=== PATIENT | male | born 1955 | race Caucasian/White ===

== ENCOUNTER 2024-12-08 21:46 | Emergency (ER) | payer MEDICARE, SELFPAY ==
[2024-12-08 22:07] VITALS: TEMP 97.2
--- NOTE | 2024-12-08 22:53 | ERPHSYRPT ---
- History of Present Illness Time Seen by Provider: 12/08/24 22:48 Source: patient Exam Limitations: no limitations Patient Subjective Stated Complaint: pt reports right foot pain beginning yesterday. pt denies injury or accident. pt reports history of DVT to the lower extermities. Triage Nursing Assessment: pt is aox3, pupils perrl, afebrile, resps easy and non labored, cap refill < 3 seconds, radial pulses strong and equal, pt skin pink warm dry. 3+ pitting edema noted to BLE, skin is intact, skin to BLE is discolored, fluid appears to be collecting under the skin of BLE as well. Physician History: Patient is a 69-year-old male history of diabetes hypertension CT stroke DVT and asthma, multiple back surgeries presents to our ED for evaluation of progressive bilateral lower extremity swelling. Symptoms have been progressive over the past day. Symptoms started after his Lasix was cut from 40 mg twice a day to 20 mg twice a day. He also cut his supplemental potassium as an adjustment for his decreased torsemide dose. No trauma no fever. No nausea vomiting or diaphoresis. Symptoms are progressive. Symptoms are moderate in intensity. No specific worsening or improving factors. No PND. at bedside. They voiced no other complaints or concerns at this time. Portions of this note were created with voice recognition technology. There may be grammatical, spelling, punctuation or sound alike errors Timing/Duration: today Severity: moderate Modifying Factors: Improves With: nothing Associated Symptoms: denies symptoms Allergies/Adverse Reactions: empagliflozin [From Jardiance] Adverse Reaction (Verified 12/08/24 22:07) Rash semaglutide [From Ozempic] Adverse Reaction (Verified 12/08/24 22:07) Home Medications: Acetaminophen [8Hr Arthritis Pain Relief] 650 mg PO DAILY PRN PRN 12/08/24 [History] Baclofen 10 mg [Lioresal 10 mg] 20 mg PO HS 12/08/24 [History] Gabapentin [Neurontin ] 600 mg PO HS 12/08/24 [History] Magnesium 400 mg PO TID 12/08/24 [History] Meclizine HCl 25 mg [Antivert 25 mg] 12.5 mg PO DAILY PRN PRN 12/08/24 [History] Melatonin 10 mg PO HS 12/08/24 [History] Metoprolol Tartrate 25 mg [Lopressor 25MG Tab] 25 mg PO BREAKFAST 12/08/24 [History] Morphine Sulfate Ir 15 mg [Msir 15 mg] 15 mg PO DAILY PRN PRN 12/08/24 [History] Nitroglycerin 0.4 mg Tablet [Nitrostat 0.4 MG Tablet] 0.4 mg PO UD 12/08/24 [History] [place]-3/Dha/Epa/Fish Oil [Fish Oil 1,000 mg Softgel] 1 each PO LUNCH 12/08/24 [History] Potassium Chloride Tab* [Klor Con] 20 meq PO HS 12/08/24 [History] Potassium Chloride Tab* [Klor Con] 20 meq PO LUNCH 12/08/24 [History] Potassium Chloride Tab* [Klor Con] 20 meq PO QAM 12/08/24 [History] Promethazine HCl 25 mg [Phenergan 25 mg] 12.5 mg PO DAILY PRN PRN 12/08/24 [History] Spironolactone 25 mg [Aldactone 25 MG] 25 mg PO BREAKFAST 12/08/24 [History] Tamsulosin HCl [Flomax] 0.4 mg PO BREAKFAST 12/08/24 [History] Tizanidine HCl 4 mg [Zanaflex 4 MG] 4 mg PO TIDPRN PRN 12/08/24 [History] Tolterodine Tartrate [Tolterodine Tartrate ER] 4 mg PO BREAKFAST 12/08/24 [History] Torsemide 20 mg [Demadex 20 mg] 20 mg PO BID 12/08/24 [History] Turmeric Root Extract [Turmeric Curcumin] 500 mg PO LUNCH 12/08/24 [History] Ubidecarenone [Co Q-10] 100 mg PO BREAKFAST 12/08/24 [History] diphenhydrAMINE HCL [Benadryl] 25 mg PO HS 12/08/24 [History] Hx Tetanus, Diphtheria Vaccination/Date Given: Yes (2024) Hx Influenza Vaccination/Date Given: Yes Hx Pneumococcal Vaccination/Date Given: Yes Immunizations Up to Date: Yes Travel Risk - International Travel Have you traveled outside of the country in past 3 weeks: No - Emerging Infectious Disease Are you exhibiting symptoms associated with any current EIDs: No - Review of Systems All Other Systems: Reviewed and Negative - Past Medical History Neurological History: Stroke ENT History: No Pertinent History Cardiac History: Congenital Heart Disease, Deep Vein Thrombosis, Hypertension, Myocardial Infarction (CT) Respiratory History: Asthma, Sleep Apnea Endocrine Medical History: Diabetes Type II Musculoskeletal History: Arthritis, Degenerative Disk Disease, Fractures GI Medical History: Diverticulitis History: No Pertinent History Psycho-Social History: No Pertinent History Male Reproductive Disorders: No Pertinent History Other Medical History: 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 dorsal spine stimulator - Past Surgical History Past Surgical History: Yes Neuro Surgical History: No Pertinent History Cardiac: Cardiac Catheterization Respiratory: No Pertinent History Gastrointestinal: Cholecystectomy Genitourinary: No Pertinent History Male Surgical History: No Pertinent History Other Surgical History: hx gastric bypass x 2 , multiple surgeries resulting from gastric bypass. hx back surgery - 15 surgeries, removal of soft tissue Significant Family History: heart disease, diabetes - Social History Smoking Status: Never smoker Exposure to second hand smoke: No Drug Use: none - Social Determinants of Health Will the patient participate in the screening: Yes Do you worry about a steady place to live?: No Do you have any problems with any of the following?: No known problems In the past 12 months,have you had to go without utilities?: No Transportation Issues: No Has anyone in your support network made you feel unsafe?: No Have you or anyone in your house had to go w/o enough food: No - Nursing Vital Signs Nursing Vital Signs: Initial Vital Signs Temperature 97.2 F 12/08/24 21:51 Pulse Rate 78 12/08/24 21:51 Respiratory Rate 20 12/08/24 21:51 Blood Pressure 154/89 12/08/24 21:51 O2 Sat by Pulse Oximetry 98 12/08/24 21:51 Pain Scale Pain Intensity 4 - Physical Exam General Appearance: no apparent distress, alert Eye Exam: PERRL/EOMI, eyes nml inspection Ears, Nose, Throat Exam: moist mucous membranes Neck Exam: normal inspection, full range of motion, other (No JVD) Respiratory Exam: normal breath sounds, diminished breath sounds, No respiratory distress Cardiovascular Exam: regular rate/rhythm, normal heart sounds, normal peripheral pulses Gastrointestinal/Abdomen Exam: soft, normal bowel sounds, No tenderness, No mass Back Exam: normal inspection, normal range of motion, No CVA tenderness, No vertebral tenderness Extremity Exam: normal inspection, normal range of motion, pelvis stable Neurologic Exam: alert, oriented x 3, cooperative, normal mood/affect, sensation nml, No motor deficits Skin Exam: normal color, warm, dry, No rash Lymphatic Exam: No adenopathy SpO2 Interpretation: normal SpO2: 97 O2 Delivery: Room Air - Course Nursing assessment & vital signs reviewed: Yes EKG Interpreted by Me: RATE (63), Sinus Rhythm, NORMAL AXIS, NORMAL INTERVALS (Shortened MI interval), NORMAL QRS - Radiology Exams Chest X-ray Interpretation: Interpreted by me (No acute finding) - Radiology Ultrasound Exam Venous Lower Extremity Ultrasound: tele radiology report (Bilateral lower extremity ultrasound negative for DVT per fleet sales manager) Ordered Tests: Active Orders 24 hr Category Date Time Status Oil Truck Driver STAT Care 12/08/24 22:45 Active EKG-ER Only STAT Care 12/08/24 22:44 Active IV Insertion STAT Care 12/08/24 22:44 Active Pulse Oximetry (ED) STAT Care 12/08/24 22:44 Active CHEST 1 VIEW (PORTABLE) Stat Exams 12/08/24 22:45 Taken VENOUS BILATERAL EXTREMITY [US] Stat Exams 12/09/24 00:03 Ordered CBC W DIFF Stat Lab 12/08/24 22:59 Completed CMP Stat Lab 12/08/24 22:59 Completed NT PRO BNPII Stat Lab 12/08/24 22:59 Completed TROPONIN Q4H Lab 12/08/24 22:59 Completed TROPONIN Q4H Lab 12/09/24 00:45 Received TROPONIN Q4H Lab 12/09/24 06:45 Ordered Urine Triage Profile Stat Lab 12/08/24 22:47 Completed Medication Summary Discontinued Medications Generic Name Dose Route Start Last Admin Trade Name Freq PRN Reason Stop Dose Admin Morphine Sulfate 4 mg 12/08/24 22:46 12/08/24 22:56 Morphine Sulfate 4 Mg/Ml Injection IV 12/08/24 22:47 4 mg STAT ONE Administration Morphine Sulfate Confirm 12/08/24 22:54 Morphine Sulfate 4 Mg/Ml Injection Administered 12/08/24 22:55 Dose 4 mg .ROUTE .[employer] [facility] [employer] ONE Lab/Rad Data: Laboratory Result Diagrams 12/08/24 22:59 12/08/24 22:59 Laboratory Results 12/09/24 12/08/24 12/08/24 Range/Units 00:45 22:59 22:59 WBC (4.23-9.07) x10^3/uL RBC (4.63-6.08) x10^6/uL Hgb (13.7-17.5) g/dL Hct (40.1-51.0) % MCV (79.0-92.2) fL MCH (25.7-32.2) pg MCHC (32.3-36.5) g/dL RDW (11.6-14.4) % Plt Count (163-337) x10^3/uL MPV (9.4-12.4) fL Gran % (34.0-67.9) % Immature Gran % (Auto) (0.001-0.429) % Nucleat RBC Rel Count (0.00-0.2) % Eos # (Auto) (0.04-0.54) x10^3/uL Immature Gran # (Auto) (0.001-0.031) x10^3u/L Absolute Lymphs (auto) (1.32-3.57) x10^3/uL Absolute Monos (auto) (0.30-0.82) x10^3/uL Absolute Nucleated RBC (0.00-0.012) x10^3u/L Lymphocytes % (21.8-53.1) % Monocytes % (5.3-12.2) % Eosinophils % (0.8-7.0) % Basophils % (0.2-1.2) % Absolute Granulocytes (1.78-5.38) x10^3/uL Basophils # (0.01-0.08) x10^3/uL Sodium (135-145) mmol/L Potassium (3.5-5.1) mmol/L Chloride (98-107) mmol/L Carbon Dioxide (22-30) mmol/L Anion Gap (5-15) MEQ/L BUN (9-20) mg/dL Creatinine (0.66-1.25) mg/dL Estimated GFR ML/MIN Glucose (74-106) mg/dL Calcium (8.4-10.2) mg/dL Total Bilirubin (0.2-1.3) mg/dL AST (17-59) U/L ALT (0-50) U/L Alkaline Phosphatase (38-126) U/L Troponin I < 0.012 < 0.012 (0.000-0.033) ng/mL NT-Pro-B Natriuret Pep 536 (<300) pg/mL Serum Total Protein (6.3-8.2) g/dL Albumin (3.5-5.0) g/dL Urine Opiates Level (NEGATIVE) Ur Methadone (NEGATIVE) Urine Barbiturates (NEGATIVE) Ur Phencyclidine (PCP) (NEGATIVE) Urine Amphetamine (NEGATIVE) U Benzodiazepine Level (NEGATIVE) Urine Cocaine (NEGATIVE) Urine Marijuana (THC) (NEGATIVE) 12/08/24 12/08/24 12/08/24 Range/Units 22:59 22:59 22:47 WBC 4.7 (4.23-9.07) x10^3/uL RBC 3.88 L (4.63-6.08) x10^6/uL Hgb 11.3 L (13.7-17.5) g/dL Hct 36.0 L (40.1-51.0) % MCV 92.8 H (79.0-92.2) fL MCH 29.1 (25.7-32.2) pg MCHC 31.4 L (32.3-36.5) g/dL RDW 13.2 (11.6-14.4) % Plt Count 168 (163-337) x10^3/uL MPV 10.0 (9.4-12.4) fL Gran % 56.8 (34.0-67.9) % Immature Gran % (Auto) 0.2 (0.001-0.429) % Nucleat RBC Rel Count 0.0 (0.00-0.2) % Eos # (Auto) 0.20 (0.04-0.54) x10^3/uL Immature Gran # (Auto) 0.01 (0.001-0.031) x10^3u/L Absolute Lymphs (auto) 1.47 (1.32-3.57) x10^3/uL Absolute Monos (auto) 0.33 (0.30-0.82) x10^3/uL Absolute Nucleated RBC 0.00 (0.00-0.012) x10^3u/L Lymphocytes % 31.0 (21.8-53.1) % Monocytes % 7.0 (5.3-12.2) % Eosinophils % 4.2 (0.8-7.0) % Basophils % 0.8 (0.2-1.2) % Absolute Granulocytes 2.69 (1.78-5.38) x10^3/uL Basophils # 0.04 (0.01-0.08) x10^3/uL Sodium 139 (135-145) mmol/L Potassium 3.9 (3.5-5.1) mmol/L Chloride 101 (98-107) mmol/L Carbon Dioxide 29 (22-30) mmol/L Anion Gap 13.1 (5-15) MEQ/L BUN 22 H (9-20) mg/dL Creatinine 1.22 (0.66-1.25) mg/dL Estimated GFR 63.4 ML/MIN Glucose 229 H (74-106) mg/dL Calcium 8.7 (8.4-10.2) mg/dL Total Bilirubin 0.30 (0.2-1.3) mg/dL AST 42 (17-59) U/L ALT 25 (0-50) U/L Alkaline Phosphatase 150 H (38-126) U/L Troponin I (0.000-0.033) ng/mL NT-Pro-B Natriuret Pep (<300) pg/mL Serum Total Protein 6.6 (6.3-8.2) g/dL Albumin 4.2 (3.5-5.0) g/dL Urine Opiates Level POSITIVE A (NEGATIVE) Ur Methadone NEGATIVE (NEGATIVE) Urine Barbiturates NEGATIVE (NEGATIVE) Ur Phencyclidine (PCP) NEGATIVE (NEGATIVE) Urine Amphetamine NEGATIVE (NEGATIVE) U Benzodiazepine Level NEGATIVE (NEGATIVE) Urine Cocaine NEGATIVE (NEGATIVE) Urine Marijuana (THC) NEGATIVE (NEGATIVE) - Progress Progress: improved Progress Note: Chest x-ray independently reviewed and interpreted by Dr. Gardner. No acute findings. This is a preliminary read. Formal read pending. 12/09/24 00:02 I spoke to patient's glove finisher Dr. Hassan who advised to stop the spironolactone and increase the torsemide from 20 twice daily to 40 twice daily. I spoke to patient's glove finisher at 1:40 AM. He will resume his potassium dose as it was when he was previously taking 40 mg twice daily. Patient was taking 40 mill equivalents of potassium twice a day along with 40 mg of torsemide twice a day. He cut down to 20 mEq of potassium twice a day along with 20 mg of torsemide twice a day. He will resume his previous dosage of torsemide and potassium. Patient is a 69-year-old male history of diabetes hypertension CT stroke DVT and asthma, multiple back surgeries presents to our ED for evaluation of progressive bilateral lower extremity swelling. Patient advises that his symptoms started after his torsemide was cut in half from 40 twice daily to 20 twice daily. However in light of patient's history of PE DVT workup included ultrasound bilateral lower extremities. Hide Puller completed ultrasound. No DVT observed. BNP is 536. Albumin is 4.2. BUN is 22. Creatinine 1.22. With a GFR of 63.6. Patient resting comfortably. We will discharge patient home. Troponin negative. EKG sinus rhythm. No ischemic changes observed. Patient denies chest pain no shortness of breath. He will resume his previous dose of torsemide and follow-up with Dr. Hassan for reassessment of his leg swelling. at bedside. They voiced no other complaints or concerns at this time. History obtained from patient and his . Differential diagnosis of leg swelling includes hypoalbuminemia, congestive heart failure, DVT Portions of this note were created with voice recognition technology. There may be grammatical, spelling, punctuation or sound alike errors Complexity of problems addressed is moderate acute complicated. No critical care time. Complex of data reviewed and analyzed is moderate. Test ordered chest reviewed results analyzed and correlated clinically with history and physical exam. Risk of complication and or risk of morbidity/mortality of patient management is low. Vital stable. Time spent discharge patient is approximately 15 minutes. Plan of care established for shared decision making. No social determinants of health present to impede follow-up. Portions of this note were created with voice recognition technology. There may be grammatical, spelling, punctuation or sound alike errors 12/09/24 01:41 Counseled pt/family regarding: lab results, diagnosis, rad results - Departure Departure Disposition: Home Clinical Impression: Leg swelling, Leg pain Condition: Stable Critical Care Time: No Referrals: LATHA JIMENEZ MD [Primary Care Provider, UNKNOWN] - Follow up/PCP as directed Additional Instructions: Discharge/Care Plan LAURA FLORES was seen on 12/09/24 in the Emergency Room. The patient was counseled regarding Diagnosis,Lab results, Imaging studies, need for follow up and when to return to the Emergency Room. Prescriptions given: Discharge Note I have spoken with the patient and/or caregivers. I have explained the patient's condition, diagnosis and treatment plan based on the information available to me at this time. I have answered the patient's and/or caregiver's questions and addressed any concerns. The patient and/or caregivers have as good understanding of the patient's diagnosis, condition and treatment plan as can be expected at this point. The vital signs have been stable. The patient's condition is stable and appropriate for discharge from the emergency department. The patient will pursue further outpatient evaluation with the primary care physician or other designated or consulting physician as outlined in the discharge instructions. The patient and/or caregivers are agreeable to this plan of care and follow-up instructions have been explained in detail. The patient and/or caregivers have received these instruction. The patient/and or caregivers are aware that any significant change in condition or worsening of symptoms should prompt an immediate return to this or the closest emergency department or call 911.
[2024-12-08] MEDS ORDERED: MORPHINE SULFATE 4 MG INJ ONE (22:54)
[2024-12-08] MEDS: MORPHINE SULFATE 4 MG INJ IV ONE (22:56)
[2024-12-08 23:00] LABS: BASOPHIL % 0.8 % (0.2-1.2); Basophil (Absolute #) 0.04 x10^3/uL (0.01-0.08); Eosinophil (Absolute #) 0.20 x10^3/uL (0.04-0.54); Hematocrit 36.0 % (40.1-51.0); Hemoglobin 11.3 g/dL (13.7-17.5); IMMATURE GRAN # 0.01 x10^3u/L (0.001-0.031); IMMATURE GRAN % 0.2 % (0.001-0.429); Lymphocyte (Absolute #) 1.47 x10^3/uL (1.32-3.57); Mean Corpuscular Hemoglobin 29.1 pg (25.7-32.2); Mean Corpuscular Hgb Concent. 31.4 g/dL (32.3-36.5); Monocyte (Absolute #) 0.33 x10^3/uL (0.30-0.82); NUCLEATED RBC # 0.00 x10^3u/L (0.00-0.012); NUCLEATED RBC % 0.0 % (0.00-0.2); Platelet Count 168 x10^3/uL (163-337); Red Blood Count 3.88 x10^6/uL (4.63-6.08); White Blood Count 4.7 x10^3/uL (4.23-9.07)
[2024-12-08 23:13] LABS: Calcium 8.7 mg/dL (8.4-10.2); Carbon Dioxide 29.0 mmol/L (22-30); Creatinine 1 1.22 mg/dL (0.66-1.25); EST GLOMERULAR FILTRATION RATE 63.4 ML/MIN; Glucose 229.0 mg/dL (74-106); Potassium 3.9 mmol/L (3.5-5.1); SGOT/AST 42.0 U/L (17-59); SGPT/ALT 25.0 U/L (0-50); Total Protein 6.6 g/dL (6.3-8.2)
[2024-12-08 23:48] LABS: Amphetamine,Urine NEGATIVE (NEGATIVE); Barbiturate,Urine NEGATIVE (NEGATIVE); Benzodiazepine,Urine NEGATIVE (NEGATIVE); Cocaine,Urine NEGATIVE (NEGATIVE); Methadone,Urine NEGATIVE (NEGATIVE); Opiate,Urine POSITIVE (NEGATIVE); PCP,Urine NEGATIVE (NEGATIVE); THC,Urine NEGATIVE (NEGATIVE)
[2024-12-09 01:31] VITALS: O2SAT 97
[2024-12-09 02:04] VITALS: BP 138/86; PULSE 63; RESP 15
--- NOTE | 2024-12-09 08:40 | XRAY ---
Indication: Short of breath. Comparison: August 04, 2009 Portable chest remains clear again with a few tiny calcified granulomas and chronic right hemidiaphragm elevation. Heart not enlarged. Bony thorax intact again with osteopenia and degenerative changes. New incompletely visualized epidural leads terminating approximately T8. Impression: Continued nonacute chest with chronic features.
--- NOTE | 2024-12-09 08:42 | XRAY ---
Indication: Bilateral pain. DVT. Two-dimensional sonogram and color Doppler imaging major venous vessels left and right leg performed. Comparison: None No thrombus seen in the examined deep venous vessels left and right leg including greater saphenous vein. Veins demonstrate normal compressibility. Venous waveforms are normal with and without augmentation. Impression: Left and right leg negative for DVT. Comment: Preliminary report was given.
== END 2024-12-09 02:18 | disposition home or self-care (01) ==
LOC: ED 21:46
DX: M79.89 Other specified soft tissue disorders (principal); M79.604 Pain in right leg; M79.605 Pain in left leg; I11.0 Hypertensive heart disease with heart failure; I50.9 Heart failure, unspecified; E11.9 Type 2 diabetes mellitus without complications; Z79.899 Other long term (current) drug therapy